=== PATIENT | female | born 1935 | race Caucasian/White ===

== ENCOUNTER → 2016-10-20 | Outpatient (CLI) | payer MEDICARE, BC ==
--- NOTE | ~2016-10-20 | CT57 ---
[facility] A Service of [facility] & [facility] RADIOLOGY TEXT RESULTS PATIENT: VIRGILIO PETERSON LOCATION: [facility] : 34 UNIT #: [id number] AGE: [address]: Amandeep Nguyen MD SEX: F ORDER DR: [id number] [facility] [address] [place], [place] [address] [id number] O MR#: [id number] Acc #: [id number] NAME: VIRGILIO PETERSON : 1935 SEX: F STUDY DATE/TIME: 10/20/2016 8:31 UNIT: [facility] ROOM: STUDY DESCRIPTION: CT Chest Wo Cont Attending Physician: Amandeep Nguyen M.D. Referring Physician: Amandeep Nguyen M.D. Ordering Physician: Amandeep Nguyen M.D. Primary Care Physician: Tyler Chavez M.D. MEDICAL IMAGING REPORT This report is preliminary unless electronic signature is present EXAM CT of the chest without contrast. DATE OF EXAM 10/20/2016 INDICATION Lung cancer. This exam is requested for surveillance for metastatic disease. COMPARISON Comparison made to a prior exam from October 30, 2015. TECHNIQUE Axial CT images were obtained from the thoracic inlet through the dome of the diaphragm. No intravenous contrast material was administered. NOTE: This CT exam was performed with one or more of the following radiation dose reduction techniques: automatic exposure control, adjustment of mA and/or kV according to patient size, and iterative reconstruction. FINDINGS This patient has an area of consolidation seen within the right upper lobe which I think appears more solid than on prior studies. It may simply reflect some scarring associated with prior radiation therapy, but short-term CT surveillance is recommended. PET could also be considered for additional evaluation. There is some areas of scarring seen within the right upper lobe, and right lower lobe which appear to be new when compared to the prior examination; however, I do think these are post radiation in nature. I am not convinced I can see any new nodules or masses on the left. Background emphysematous changes are seen. Thyroid gland is enlarged and heterogeneous, as has been identified on prior studies. Trachea is within normal limits. There is a small hiatal hernia. There is a trace pericardial effusion. I do not see any STS. [facility] A Service of [facility] & [facility] RADIOLOGY TEXT RESULTS PATIENT: VIRGILIO PETERSON [id number] UNIT #: [id number] AGE: [address]: Amandeep Nguyen MD SEX: F ORDER DR: convincing evidence of metastatic disease to the upper abdomen. Review of bony windows does not demonstrate in aggressive osseous abnormalities. IMPRESSION This patient is noted to have an area of consolidation within the right upper lobe which is more solid in appearance than when compared to the prior exam. 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 I would suggest either very short-term CT followup in 3 months or consideration for PET. 2 additional areas of scarring associated with some bronchiectasis are seen within the right upper lobe and right lower lobe. These are favored to represent postradiation change. Please see the body of the report for any other additional incidental findings. Dictated by... Micaela Waldrop M.D. THIS IS AN ELECTRONICALLY VERIFIED REPORT Micaela Waldrop M.D. at 10/21/2016 4:46 PM GARCÍA/chris TD: 10/20/2016 20:44 JOB #: [id number] MEDICAL IMAGING REPORT COPY
== END | disposition home or self-care (01) ==
LOC: CCAT 07:58
DX: C34.90 Malignant neoplasm of unspecified part of unspecified bronchus or lung (principal); J18.1 Lobar pneumonia, unspecified organism; J47.9 Bronchiectasis, uncomplicated
CPT/HCPCS: 71250

== ENCOUNTER → 2017-02-24 | Outpatient (CLI) | payer MEDICARE, BC ==
--- NOTE | ~2017-02-24 | US24 ---
[facility] A Service of [facility] & [facility] RADIOLOGY TEXT RESULTS PATIENT: VIRGILIO PETERSON LOCATION: [facility] : 34 UNIT #: [id number] AGE: [address]: TYLER MCNAIR MD SEX: F ORDER DR: [id number] [facility] [address] [place], [place] [address] [id number] O MR#: [id number] Acc #: [id number] NAME: VIRGILIO PETERSON : 1935 SEX: F STUDY DATE/TIME: 02/24/2017 10:03 UNIT: [facility] ROOM: STUDY DESCRIPTION: Breast Unilateral Attending Physician: Tyler Mcnair M.D. Referring Physician: Tyler Mcnair M.D. Ordering Physician: Tyler Mcnair M.D. Primary Care Physician: Tyler Mcnair M.D. MEDICAL IMAGING REPORT This report is preliminary unless electronic signature is present EXAM Right breast, 02/24 INDICATION Chronic right breast pain predominately behind the nipple. FINDINGS For a full report, see the mammogram report dated 02/24/2017. Patients over the age of 40 are entered into a reminder system with target due date for the next mammogram. A result letter will also be sent to the patient. BIRADS: 2 Benign Finding Dictated by... Dejan Garcia Jr., M.D. THIS IS AN ELECTRONICALLY VERIFIED REPORT Dejan Garcia Jr., M.D. at 02/24/2017 5:04 PM SURINDER/ya TD: 02/24/2017 14:50 JOB #: [id number] MEDICAL IMAGING REPORT Page 1 of 1 COPY
--- NOTE | ~2017-02-24 | MY25 ---
[facility] A Service of [facility] RADIOLOGY TEXT RESULTS PATIENT: VIRGILIO PETERSON LOCATION: [facility] : 34 UNIT #: [id number] AGE: [address]: TYLER MCNAIR MD SEX: F ORDER DR: [id number] [facility] [address] [place], [place] [address] [id number] O MR#: [id number] Acc #: [id number] NAME: VIRGILIO PETERSON : 1935 SEX: F STUDY DATE/TIME: 02/24/2017 9:24 UNIT: [facility] ROOM: STUDY DESCRIPTION: ABHISHEK ROSE DIAG W/ CAD UNI RT Attending Physician: Tyler Mcnair M.D. Referring Physician: Tyler Mcnair M.D. Ordering Physician: Tyler Mcnair M.D. Primary Care Physician: Tyler Mcnair M.D. MEDICAL IMAGING REPORT This report is preliminary unless electronic signature is present EXAM Diagnostic right mammogram, 02/24 INDICATION Persistent right side breast pain behind the nipple. FINDINGS Digital CC, MLO, and ML views of the right breast were obtained. Study is reviewed with an FDA-approved CAD device. Comparison is made with 08/25/2016 and 07/16/2014. Breast parenchyma shows scattered fibroglandular densities. No masses or suspicious microcalcifications are seen. Benign calcification in the central breast is stable. Ultrasound was performed of the subareolar breast. No masses or fluid collections are identified. There is some minimal subareolar duct ectasia. Findings were discussed with the patient at the time of her exam today. IMPRESSION Benign right mammogram with a benign targeted right breast ultrasound. Continued clinical followup of breast recommended. Otherwise, the patient should continue with routine yearly screening at her normal interval. Patients over the age of 40 are entered into a reminder system with target due date for the next mammogram. A result letter will also be sent to the patient. BIRADS: 2 Benign Finding Dictated by... Dejan Garcia Jr., M.D. [facility] A Service of [facility] RADIOLOGY TEXT RESULTS PATIENT: VIRGILIO PETERSON LOCATION: [facility] : 34 UNIT #: [id number] AGE: [address]: TYLER MCNAIR MD SEX: F ORDER DR: THIS IS AN ELECTRONICALLY VERIFIED REPORT Dejan Garcia Jr., M.D. at 02/24/2017 5:04 PM SURINDER/ya TD: 02/24/2017 14:46 JOB #: [id number] MEDICAL IMAGING REPORT Page 1 of 1 COPY
== END | disposition home or self-care (01) ==
LOC: CMAM 08:50
DX: N64.4 Mastodynia (principal); G89.18 Other acute postprocedural pain
CPT/HCPCS: 76641; G0206

== ENCOUNTER → 2017-04-15 | Outpatient (CLI) | payer MEDICARE, BC ==
--- NOTE | ~2017-04-15 | CT57 ---
[facility] A Service of [facility] & [facility] RADIOLOGY TEXT RESULTS PATIENT: VIRGILIO PETERSON LOCATION: [facility] : 34 UNIT #: [id number] AGE: [address]: Amandeep Nguyen MD SEX: F ORDER DR: [id number] [facility] [address] [place], [place] [address] [id number] O MR#: [id number] Acc #: [id number] NAME: VIRGILIO PETERSON : 1935 SEX: F STUDY DATE/TIME: 04/15/2017 14:47 UNIT: [facility] ROOM: STUDY DESCRIPTION: CT Chest Wo Cont Attending Physician: Amandeep Nguyen M.D. Referring Physician: Amandeep Nguyen M.D. Ordering Physician: Amandeep Nguyen M.D. Primary Care Physician: Tyler Chavez M.D. MEDICAL IMAGING REPORT This report is preliminary unless electronic signature is present EXAM CT chest without contrast 04/15/2017 HISTORY 82-year-old female with history of lung cancer. Right breast pain for 1 month. Last radiation therapy treatment 3 years ago. Observation metastatic disease. Restaging. Additional history of hypertension. COMPARISON CT chest without contrast 10/20/2016, 10/30/2015. TECHNIQUE 5 mm axial images through the chest without contrast. Sagittal and coronal reformatted images were obtained. This CT exam was performed with one or more of the following radiation dose reduction techniques: automatic exposure control, adjustment of mA and/or kV according to patient size, and iterative reconstruction. FINDINGS There is increased fragmentation of bone previously seen right third and fourth rib fractures laterally with displacement. There is a wedge-shaped area of parenchymal density within the right upper lobe, extending near the margin of the previously described right rib fractures. This appears unchanged compared to 10/20/2016 but appears more dense than on the 10/30/2015 exam. Once again, however, benign etiology, such as fibrosis, is favored. Previously described areas of band-like density within the inferior right upper lobe and within the right lower lobe on 10/20/2016 have resolved suggesting re-expanded atelectasis. [facility] Service of [facility] RADIOLOGY TEXT RESULTS PATIENT: VIRGILIO PETERSON LOCATION: [facility] : 34 UNIT #: [id number] AGE: [address]: Amandeep Nguyen MD SEX: F ORDER DR: demonstrated medially within the right lower lobe. Mild generalized emphysematous changes are present with benign calcified granulomas changes in the left lower lobe. No new pulmonary nodules are identified. No pathologic adenopathy is seen. Stable mild cardiac enlargement with dense coronary artery calcifications. No pericardial effusion or pleural effusion. Heterogeneous asymmetric enlargement of the right thyroid lobe, unchanged. Shotty mediastinal lymph nodes are not pathologically enlarged by CT criteria. There is a small esophageal hiatal hernia. Incompletely imaged 2.9 cm ectasia of the infrarenal abdominal aorta. IMPRESSION 1. Previously documented right third and fourth rib fractures laterally appear to have increased fragmentation since the 10/20/2016 examination and may account for the patient's pain. 2. Band-like opacity in the periphery the right upper lobe, immediately subjacent to the aforementioned rib fractures, is a stable finding since 10/20/2016. Once again, it is slightly more dense than on the more remote 10/30/2015 examination, but nonetheless is favored to represent a benign area of scarring/fibrosis. 3. Re-expansion of atelectasis in the inferior medial right upper lobe and within the right lower lobe since 10/20/2016. There are no new pulmonary nodules and no new airspace disease changes. 4. Mild emphysema. 5. Stable mild cardiac enlargement with coronary artery calcifications. 6. Heterogeneous asymmetric nodular enlargement of the right thyroid lobe, unchanged. This can be correlated to thyroid function test and/or thyroid ultrasound if it would aid in patient's clinical management. 7. Small esophageal hiatal hernia. 8. Incompletely imaged infrarenal abdominal ectasia up to 2.9 cm. Dictated by... Christal Patiño M.D. THIS IS AN ELECTRONICALLY VERIFIED REPORT Christal Patiño M.D. at 04/21/2017 3:26 PM KENRICK/viv TD: 04/16/2017 19:27 JOB #: [id number] [facility] A Service of [facility] & [facility] RADIOLOGY TEXT RESULTS PATIENT: VIRGILIO PETERSON LOCATION: [facility] : 34 UNIT #: [id number] AGE: [address]: Amandeep Nguyen MD SEX: F ORDER DR: MEDICAL IMAGING REPORT Page 1 of 1 COPY
== END | disposition home or self-care (01) ==
LOC: CCAT 14:20
DX: C34.90 Malignant neoplasm of unspecified part of unspecified bronchus or lung (principal); R91.8 Other nonspecific abnormal finding of lung field; J98.11 Atelectasis; J43.9 Emphysema, unspecified; I25.10 Atherosclerotic heart disease of native coronary artery without angina pectoris; E04.1 Nontoxic single thyroid nodule; K44.9 Diaphragmatic hernia without obstruction or gangrene; I77.819 Aortic ectasia, unspecified site
CPT/HCPCS: 71250